=== PATIENT | female | born 1975 | race American Indian/Alaskan Native ===

== ENCOUNTER 2017-05-25 09:43 | Outpatient (CLI) | payer OTHER ==
--- NOTE | 2017-05-25 10:31 | XRay Report ---
Bilateral knees: History: Knee pain. Findings: Normal medial and lateral compartment of right and left knee joint. Suspicion of mild arthritic changes at the patellofemoral compartment bilaterally. There is spur identified at the anterosuperior aspect of right and left patella. Impression: Suspicion of mild arthritic changes at the patellofemoral compartment with spur identified at the patella.
--- NOTE | 2017-05-25 10:32 | XRay Report ---
Lumbar spine 3 views: Pain back pain pain in legs. Findings: Normal height of vertebral bodies and intervertebral disc. Sclerotic articular surfaces with small anterior osteophytes suggestive early degenerative changes predominantly at L4-5. Impression: Early degenerative changes lumbar spine.
== END 2017-05-25 09:44 | disposition home or self-care (01) ==
LOC: XRAY 09:43
PROVIDERS: ATTEND Internal Medicine
DX: M47.896 Other spondylosis, lumbar region (principal); M25.861 Other specified joint disorders, right knee; M25.862 Other specified joint disorders, left knee; B20 Human immunodeficiency virus [HIV] disease; G47.33 Obstructive sleep apnea (adult) (pediatric); F32.9 Major depressive disorder, single episode, unspecified; E66.01 Morbid (severe) obesity due to excess calories; J39.2 Other diseases of pharynx; R53.83 Other fatigue
CPT/HCPCS: 72100